=== PATIENT | male | born 1970 | race Two or more races ===

== ENCOUNTER 2017-07-07 22:31 | Emergency (ER) | payer OTHER ==
[~2017-07-07] VITALS: Ht 177.8 cm; Wt 79.8 kg
[2017-07-07] MEDS ORDERED: DILANTIN100 MG ORAL (22:46)
[2017-07-07 22:48] VITALS: BP 120/77
[2017-07-07] MEDS ORDERED: Tetanus/Diptheria/Pertussis Vaccine 0.5ml Syr IM ONE (23:30)
[2017-07-08] MEDS ORDERED: Lidocaine 1% Plain 30 ml INJ ONE (00:03)
[2017-07-08 00:20] VITALS: BP 120/77
[2017-07-08] MEDS ORDERED: AMOXICILLIN500 MG ORAL (00:20)
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
== END 2017-07-08 00:20 | disposition home or self-care (01) ==
LOC: EMR 22:50
DX: S01.511A Laceration without foreign body of lip, initial encounter (principal); Y04.2XXA Assault by strike against or bumped into by another person, initial encounter; Y92.59 Other trade areas as the place of occurrence of the external cause; Y99.0 Civilian activity done for income or pay; Z23 Encounter for immunization
CPT/HCPCS: 12011; 90471; 90715; 99284; J2001

== ENCOUNTER 2017-07-15 23:27 | Emergency (ER) | payer OTHER ==
[~2017-07-15] VITALS: Ht 177.8 cm; Wt 80.7 kg
[~2017-07-15 23:27] MED LIST: AMOXICILLIN500 MG ORAL; DILANTIN100 MG ORAL
--- NOTE | 2017-07-16 00:28 | Emergency Room Report ---
History of Present Illness General Chief Complaint: Wound Recheck/Suture Removal Source: Patient Present Illness HPI 47-year-old male presents with suture removal from upper lip, no bleeding, no erythema, no purulence, patient feels well Allergies: Coded Allergies: No Known Allergies (Unverified , 07/07/17) Patient History Past Medical History: see triage record Reviewed Nursing Documentation: PMH: Agreed; PSxH: Agreed Nursing Documentation-PMH Hx Seizures: Yes Review of Systems All Other Systems: negative except mentioned in HPI Physical Exam Vital Signs Date Time Temp Pulse Resp B/P (MAP) Pulse Ox O2 Delivery O2 Flow Rate FiO2 07/15/17 23:30 98.3 71 18 126/74 99 Room Air 98.2 Sp02 EP Interpretation: reviewed, normal General Appearance: no apparent distress, alert, non-toxic Head: normocephalic Eyes: bilateral eye normal inspection, bilateral eye PERRL, bilateral eye EOMI ENT: normal ENT inspection, hearing grossly normal, normal pharynx, no angioedema, normal voice, moist mucus membranes Neck: normal inspection, full range of motion, supple, supple/symm/no masses Rectal: deferred Musculoskeletal: gait/station normal Neurologic: alert, responsive, 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, speech normal Psychiatric: mood/affect normal Skin: normal color, no rash, warm/dry, normal turgor, wd healing/no infection noted, other Lymphatic: no adenopathy Medical Decision Making Diagnostic Impression: Primary Impression: Encounter for removal of sutures ER Course 2 sutures removed from left upper lip, well-healing No complications No blood loss Internal suture still visible, will not remove Last Vital Signs Date Time Temp Pulse Resp B/P (MAP) Pulse Ox O2 Delivery O2 Flow Rate FiO2 07/15/17 23:30 98.3 71 18 126/74 99 Room Air 98.2 Disposition: HOME, SELF-CARE Condition: Stable Patient Instructions: Wound Check SHEY JUAN M.D July 16, 2017 00:28
[2017-07-16 00:30] VITALS: BP 126/74
== END 2017-07-16 00:30 | disposition home or self-care (01) ==
LOC: EMR 07-16 00:25
DX: Z48.02 Encounter for removal of sutures (principal); Z86.69 Personal history of other diseases of the nervous system and sense organs
CPT/HCPCS: 99281